=== PATIENT | male | born 1970 | race African-American/Black ===

== ENCOUNTER 2022-12-26 10:11 | Emergency (ER) | payer OTHER ==
[~2022-12-26] VITALS: Ht 172.7 cm; Wt 110.5 kg
[2022-12-26] MEDS ORDERED: HEPARIN SODIUM,PORCINE 5,000 UNITS/ML VIAL IVP PRN ×2 (10:15)
[2022-12-26] MEDS ORDERED: HEPARIN SODIUM,PORCINE 5,000 UNITS/ML VIAL IVP ONE ×2 (10:15→10:45)
[2022-12-26] MEDS ORDERED: HEPARIN SODIUM 25000 UNITS/D5W 250 ML IV PRN (10:15)
[2022-12-26] MEDS ORDERED: IOHEXOL 350 MG/ML 100 ML VIAL ONE (10:23)
[2022-12-26] MEDS ORDERED: SODIUM CHLORIDE 0.9% 100 ML ONE (10:23)
[2022-12-26] MEDS ORDERED: HEPARIN SODIUM 25000 UNITS/D5W 250 ML IV ONE (10:36)
[2022-12-26 10:44] LABS: BASOPHILS % (AUTO) 0.5 % (0.0-2.0); EOSINOPHILS % (AUTO) 6.5 % (1.0-6.0); HEMATOCRIT 45.5 % (41-53); HEMOGLOBIN 14.4 g/dL (13.5-17.5); LYMPHOCYTES # (AUTO) 5.6 K/uL (1.0-4.8); LYMPHOCYTES % (AUTO) 46.1 % (22.0-44.0); MEAN CORPUSCULAR HEMOGLOBIN 28.3 pg (26.0-34.0); MEAN CORPUSCULAR HGB CONC 31.6 G/dL (31.0-37.0); MEAN CORPUSCULAR VOLUME 90 fL (80-100); MONOCYTES # (AUTO) 0.9 K/uL (0.1-1.0); NEUTROPHILS # (AUTO) 4.8 K/uL (1.8-7.7); NEUTROPHILS % (AUTO) 39.9 % (40.0-70.0); PLATELET COUNT (AUTO) 121 K/uL (150-450); RED BLOOD CELL COUNT(AUTO) 5.08 MIL/uL (4.50-5.90); WHITE BLOOD COUNT (AUTO) 12.1 K/uL (4.5-11.0)
[2022-12-26 10:53] LABS: ALBUMIN 3.1 g/dL (3.4-5.0); CALCIUM, TOTAL 8.8 mg/dL (8.8-10.5); CREATININE 2.15 mg/dL (0.60-1.30); TOTAL PROTEIN, SERUM 6.5 g/dL (6.4-8.2)
[2022-12-26 10:56] LABS: INR 1.2 (0.9-1.1); PROTHROMBIN TIME 12.2 SEC (9.4-11.6)
[2022-12-26 10:57] LABS: POTASSIUM 2.8 mmol/L (3.5-5.1)
[2022-12-26] MEDS ORDERED: POTASSIUM CHLORIDE 40 MEQ in SODIUM CHLORIDE 0.9% 1,000 ML IV ONE (11:00)
[2022-12-26 13:22] LABS: TROPONIN I-HIGH SENSITIVITY 5482 ng/L (<76)
[2022-12-26 13:58] VITALS: BP 117/75; PULSE 101; RESP 20
== END 2022-12-26 14:58 | disposition short-term general hospital (02) ==
LOC: EMS 10:12 → EDBD 10:12 → EMS 14:58
DX: I26.99 Other pulmonary embolism without acute cor pulmonale (principal); R79.89 Other specified abnormal findings of blood chemistry; Z86.711 Personal history of pulmonary embolism
CPT/HCPCS: 99291; 93306; 70450; 96365; 71045; 96366; 80053; 84484; 85025; 85610; 85730; 36415; 71275; 93005; 96376; 96368; J1644 ×2; Q9967; J3480; J7030; J7050